=== PATIENT | male | born 1965 | race Caucasian/White ===

== ENCOUNTER 2019-02-12 09:05 | Outpatient (CLI) | payer BC ==
[2019-02-12 11:13] LABS: ALBUMIN 4.2 g/dL (3.2-5.5); ALBUMIN/GLOBULIN RATIO 1.4 (1.0-2.2); ALKALINE PHOSPHATASE 85 IU/L (42-121); ALT ALANINE AMINOTRANSFERASE 57 IU/L (10-60); AST ASPARTATE AMINOTRANSFERASE 37 IU/L (10-42); BILIRUBIN,TOTAL 0.6 mg/dL (0.2-1.0); BUN - BLOOD UREA NITROGEN 16 mg/dL (6-20); CALCIUM 9.2 mg/dL (8.5-10.3); CARBON DIOXIDE - CO2 24 mmol/L (21-32); CHLORIDE 106 mmol/L (101-111); CHOL/HDL RATIO 3.2 (<5.0); CHOLESTEROL 200 mg/dL; GFR - MDRD 78 (>89); GLUCOSE 89 mg/dL (70-100); HDL CHOLESTEROL 62 mg/dL; LDL CHOLESTEROL,CALCULATED 125 mg/dL; SODIUM 140 mmol/L (135-145); TOTAL PROTEIN 7.3 g/dL (6.7-8.2); VLDL CHOLESTEROL 13 mg/dL
== END 2019-02-12 09:06 | disposition home or self-care (01) ==
LOC: LAB.F 09:05
PROVIDERS: ATTEND Internal Medicine
DX: Z00.00 Encounter for general adult medical examination without abnormal findings (principal)
CPT/HCPCS: 36415; 80053; 80061; 83721

== ENCOUNTER 2019-04-27 09:58 | Day surgery (SDC) | payer BC ==
[2019-04-27] MEDS ORDERED: LACTATED RINGERS 1,000 ML IV ONE (10:17)
[2019-04-27] MEDS ORDERED: MIDAZOLAM 2 MG/2 ML VIAL IVP ONE (11:17)
[2019-04-27] MEDS ORDERED: fentaNYL 250 MCG/5 ML VIAL IVP ONE (11:17)
[2019-04-27 12:01] VITALS: BP 115/72
== END 2019-04-27 09:59 | disposition home or self-care (01) ==
LOC: SDS 09:58
PROVIDERS: ATTEND Internal Medicine Gastroenterology
PROC: 0DJD8ZZ Inspection of Lower Intestinal Tract, Via Natural or Artificial Opening Endoscopic (ICD-10-PCS; principal; 2019-04-27 11:30)
DX: Z12.11 Encounter for screening for malignant neoplasm of colon (principal); F32.9 Major depressive disorder, single episode, unspecified; R05 Cough
CPT/HCPCS: 45378; J3010; J7120

== ENCOUNTER 2021-08-05 11:47 | Outpatient (CLI) | payer BC ==
[2021-08-05 15:03] LABS: BASOPHILS % (AUTO) 0.7 %; EOSINOPHILS # (AUTO) 0.1 10^3/uL (0.0-0.7); EOSINOPHILS % (AUTO) 2.7 %; HCT - HEMATOCRIT 42.6 % (42.0-52.0); HGB - HEMOGLOBIN 14.4 g/dL (14.0-18.0); LYMPHOCYTES # (AUTO) 1.6 10^3/uL (1.5-3.5); LYMPHOCYTES % (AUTO) 39.5 %; MEAN CORPUSCULAR HGB CONC 33.8 g/dL (32.0-36.0); MEAN CORPUSCULAR VOLUME 94.7 fL (80.0-94.0); MEAN PLATELET VOLUME 9.3 fL (7.4-11.4); MONOCYTES # (AUTO) 0.5 10^3/uL (0.0-1.0); NEUTROPHILS # (AUTO) 1.9 10^3/uL (1.5-6.6); NEUTROPHILS % (AUTO) 45.9 %; PLT - PLATELET COUNT 319 10^3/uL (130-450); RED CELL DISTRIBUTION WIDTH 12.3 % (12.0-15.0); WHITE BLOOD COUNT 4.1 x10^3/uL (4.8-10.8)
[2021-08-05 15:32] LABS: ALBUMIN 4.5 g/dL (3.2-5.5); ALBUMIN/GLOBULIN RATIO 1.6 (1.0-2.2); ALKALINE PHOSPHATASE 70 IU/L (42-121); ALT ALANINE AMINOTRANSFERASE 43 IU/L (10-60); AST ASPARTATE AMINOTRANSFERASE 29 IU/L (10-42); BILIRUBIN,TOTAL 0.9 mg/dL (0.2-1.0); BUN - BLOOD UREA NITROGEN 15 mg/dL (6-20); CALCIUM 9.3 mg/dL (8.5-10.3); CARBON DIOXIDE - CO2 26 mmol/L (21-32); CHLORIDE 102 mmol/L (101-111); CHOL/HDL RATIO 3.3 (<5.0); CHOLESTEROL 225 mg/dL; CREATININE 0.9 mg/dL (0.6-1.2); GFR - MDRD 88 (>89); GLUCOSE 98 mg/dL (70-100); HDL CHOLESTEROL 69 mg/dL; LDL CHOLESTEROL,CALCULATED 145 mg/dL; LDL/HDL RATIO 2.1 (<3.6); POTASSIUM 3.9 mmol/L (3.5-5.0); SODIUM 137 mmol/L (135-145); TOTAL PROTEIN 7.3 g/dL (6.7-8.2); TRIGLYCERIDES 57 mg/dL; VLDL CHOLESTEROL 11 mg/dL
[2021-08-05 15:37] LABS: THYROID STIMULATING HORMONE 2.31 uIU/mL (0.34-5.60)
== END 2021-08-05 11:48 | disposition home or self-care (01) ==
LOC: LAB.S 11:47
PROVIDERS: ATTEND Emergency Medicine
DX: Z00.00 Encounter for general adult medical examination without abnormal findings (principal); Z79.899 Other long term (current) drug therapy; F32.A Depression, unspecified
CPT/HCPCS: 36415; 80053; 80061; 83721; 84153; 84443; 85025

== ENCOUNTER 2021-09-04 08:00 | Outpatient (CLI) | payer BC | END 2021-09-04 23:59 | LOC: LAB.S 08:00 | PROVIDERS: ATTEND Physician Assistant | DX: A08.39 Other viral enteritis (principal); Z20.822 Contact with and (suspected) exposure to COVID-19 ==

== ENCOUNTER 2022-06-27 08:41 | Outpatient (CLI) | payer BC ==
[2022-06-27] MEDS ORDERED: GADOBUTROL 10 MMOL/10 ML VIAL ONE (08:45)
[2022-06-27] MEDS ORDERED: GADOBUTROL 10 MMOL/10 ML VIAL IVP ONE (12:51)
--- NOTE | 2022-06-27 14:23 | MRI Report ---
PROCEDURE: MRI of the brain and internal auditory canals with and without contrast INDICATIONS: SCHWANNOMA, EUSTACHIAN TUBE DYSFUNCTION CONTRAST: IV CONTRAST: Gadavist ml: 9.0 TECHNIQUE: Noncontrast sagittal T1 spin echo, axial FLAIR, axial gradient echo, axial diffusion and ADC through the brain. Axial thin-slice 3D CISS, coronal balanced GE, axial T1 spin echo with fat sa turation through the internal auditory canals. After the administration of contrast, thin slice axia l and coronal T1 spin echo with fat saturation through the internal auditory canals, and axial T1 spi n echo with fat saturation through the brain. COMPARISON: None. FINDINGS: Image quality: Excellent. Cerebellopontine angles: Enhancing nodule within the left internal auditory canal measures 1 x 0.5 c m, consistent with small schwannoma. No significant cisternal component. Right IAC and 7th and 8th cr anial nerve complexes are unremarkable. CSF spaces: Ventricles are normal in size and shape. No extra-axial fluid collections. Basal ciste rns are patent. Brain: No intracranial bleeds or mass effects. Sepulveda-white matter interface is intact. No abnormal intracranial enhancement. Diffusion weighted images demonstrate no acute ischemic insults. Brainste m appears normal. Normal intravascular flow voids are present. Skull and face: Left-sided temporal craniotomy secured by round plates Sinuses: Sinuses and mastoids are clear. IMPRESSION: Intracanalicular left IAC nodule, consistent with schwannoma. No cisternal component Reviewed by: Wolf Carrington MD on 06/27/2022 1:22 PM BEHZAD Approved by: Wolf Carrington MD on 06/27/2022 1:22 PM AKDT Station ID: [id number]
== END 2022-06-27 08:42 | disposition home or self-care (01) ==
LOC: DI 08:41
PROVIDERS: ATTEND Registered Nurse
DX: Q85.02 Neurofibromatosis, type 2 (principal); H69.80 Other specified disorders of Eustachian tube, unspecified ear
CPT/HCPCS: 70553; A9585